=== PATIENT | female | born 1975 | race Caucasian/White ===

== ENCOUNTER 2018-06-05 19:55 | Emergency (ER) | payer BC ==
[2018-06-05 20:07] VITALS: BP 117/73
--- NOTE | 2018-06-05 20:25 | UC ---
Dental HPI - HPI Summary HPI Summary: 42-year-old female presents to urgent care with chief complaint of dental abscess since yesterday. She had a root canal and a Placed on this tooth approximately one year ago. She was seen just prior to arrival at [address] [place] [address] urgent care and referred to the ER for reevaluation of this tooth. She had fever up to 101.9. She has minor facial swelling without difficulty opening the mouth. There is been known nausea or vomiting. She is not a smoker. - History of Current Complaint Chief Complaint: UCDentalProblem Stated Complaint: DENTAL COMPLAINT Time Seen by Provider: 06/05/18 20:18 Hx Obtained From: Patient Hx Last Menstrual Period: 1 week ago Pain Intensity: 6 - Allergies/Home Medications Allergies/Adverse Reactions: Allergies Allergy/AdvReac Type Severity Reaction Status Date / Time No Known Allergies Allergy Verified 06/05/18 20:03 Home Medications: Home Medications Budesonide/Formote 80/4.5(NF) [Symbicort 80/4.5 (NF)] 1 puff INH DAILY 06/05/18 [History Confirmed 06/05/18] Ibuprofen 400 mg PO Q8HR PRN 06/05/18 [History Confirmed 06/05/18] PMH/Surg Hx/FS Hx/Imm Hx Previously Healthy: Yes - Surgical History Surgical History: Yes Surgery Procedure, Year, and Place: 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 Negative: Rash Eyes: Positive: Negative ENT: Positive: Dental Pain. Negative: Sore Throat, Ear Ache, Nasal Discharge, Sinus Congestion, Sinus Pain/Tenderness Respiratory: Positive: Cough Cardiovascular: Positive: Negative Gastrointestinal: Negative: Vomiting Physical Exam Appearance: Well-Appearing, No Pain Distress, Well-Nourished Vital Signs: Initial Vital Signs Temp 99.5 F 06/05/18 20:00 Pulse 94 06/05/18 20:00 Resp 18 06/05/18 20:00 BP 117/73 06/05/18 20:00 Pulse Ox 97 02/15/19 20:00 Vital Signs Reviewed: Yes Eyes: Positive: Conjunctiva Clear ENT: Positive: Pharynx normal, TMs normal, Other - no mastoid tenderness or erythema. Negative: Nasal congestion, Nasal drainage Dental: Positive: Abscess @ - L lower 1st premolar. Tooth has cap. Pointing and spontaneous drainage from base of tooth. Adjacent mild mandibular swelling, no pointing area or fluxuance in gingiva. Neck: Positive: Supple, Nontender, No Lymphadenopathy Respiratory: Positive: Lungs clear Cardiovascular: Positive: RRR Musculoskeletal: Positive: Strength Intact, ROM Intact Neurological: Positive: Alert, Muscle Tone Normal Skin: Negative: Rashes Dental Complaint Course/Dx - Course Course Of Treatment: nurses notes reviewed. Abscess is spontaneously draining and was milked out. Her fever was tx with tylenol and 1st dose of antibiotic was given here. Has dental appt on Friday. No evidence for sepsis or serious infection. Offered dental block but pt refused. - Differential Dx/Diagnosis Differential Diagnosis/Dx: Dental Abscess, Dental Caries, Gingivitis Provider Diagnosis: Dental abscess Discharge - Sign-Out/Discharge Documenting (check all that apply): Patient Departure All imaging exams completed and their final reports reviewed: No Studies - Discharge Plan Condition: Improved Disposition: HOME Prescriptions: Amoxicillin/Clavulanate TAB* [Augmentin TAB 875*] 875 mg PO BID #20 tab Chlorhexidine Gluconate [Periogard] 15 ml .SEE ORDER TID PRN #1 bottle PRN Reason: dental infection Patient Education Materials: Dental Abscess (ED) Referrals: Lefty Ramsey MD [Primary Care Provider] - Additional Instructions: Follow up with dentist as scheduled on Friday. Tylenol/ibuprofen for pain/ fever. Return with worsened pain/swelling, unable to open mouth, worse or other concerns. Salt water gargles -- milk out area. - Billing Disposition and Condition Condition: IMPROVED Disposition: Home - Attestation Statements Document Initiated by Scribe: No
[2018-06-05] MEDS ORDERED: Amoxicillin/Clavulanate TAB* 875 MG PO ONE (20:28)
[2018-06-05] MEDS ORDERED: Acetaminophen TAB* 325 MG PO ONE (20:28)
== END 2018-06-05 20:40 | disposition home or self-care (01) ==
LOC: UCEAST 19:55
DX: K04.7 Periapical abscess without sinus (principal)
CPT/HCPCS: 99202; A9270-GY; G0463